=== PATIENT | female | born 1970 | race Caucasian/White ===

== ENCOUNTER 2020-10-17 18:27 | Emergency (ER) | payer SELFPAY ==
[~2020-10-17] VITALS: Ht 157.5 cm; Wt 84.1 kg
[2020-10-17 19:04] VITALS: TEMP 98
[2020-10-17 21:18] LABS: COLLECTION METHOD CLEAN CATCH
[2020-10-17 21:27] LABS: BUDDING YEAST Present /hpf; MUCOUS Present /lpf; PH 5 (5-8); URINE APPEARANCE Cloudy; URINE BACTERIA Rare /hpf; URINE BILIRUBIN Negative (NEGATIVE); URINE BLOOD 1+ (NEGATIVE); URINE COLOR Yellow; URINE GLUCOSE Negative (NEGATIVE); URINE KETONE Trace (NEGATIVE); URINE LEUKOCYTE ESTERASE 3+ (NEGATIVE); URINE NITRATE Negative (NEGATIVE); URINE PROTEIN(semi-quant) Negative (NEGATIVE); URINE UROBILINOGEN Negative (NEGATIVE)
[2020-10-17] MEDS ORDERED: CEFTIN 250250 MG/TAB PO (21:57)
[2020-10-17 22:00] VITALS: BP 128/70; PULSE 78
== END 2020-10-17 22:00 | disposition home or self-care (01) ==
LOC: COL.ER 18:27
PROVIDERS: Nurse Practitioner
DX: N76.0 Acute vaginitis (principal); N39.0 Urinary tract infection, site not specified
CPT/HCPCS: J0696